=== PATIENT | male | born 1960 | race Caucasian/White ===

== ENCOUNTER 2018-11-24 11:42 | Emergency (ER) | payer BC ==
[2018-11-24 12:10] VITALS: RESP 18
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
--- NOTE | 2018-11-24 15:08 | CT ---
EXAMINATION TYPE: CT brain ken coombs con DATE OF EXAM: 11/24/2018 COMPARISON: 01/17/2011 HISTORY: Fall on 11/22/18. Head and neck pain. CT DLP: 1754.[address] of the brain was performed. The ventricles, basal cisterns and sulci overlying the cerebral convexities demonstrate enlargement. There is no evidence for intracranial hemorrhage or sulcal effacement. There is decreased attenuatio n about the periventricular white matter and deep white matter of both cerebral hemispheres, compatib le with chronic small vessel ischemia. No mass effects are seen. If symptoms persist consider MRI. Osseous calvarium is intact. IMPRESSION: 1. Age related atrophic and chronic small vessel ischemic change without acute intracranial process seen at this time. CT Cervical Spine: Unenhanced CT of the cervical spine was performed with bone and soft tissue window settings submitted . Coronal and sagittal reconstruction is obtained. There is normal alignment and prevertebral soft tissues. No evidence for acute cervical fracture . Scattered degenerative disc disease and spondylosis. Biapical scarring. IMPRESSION: 1. No evidence for acute fracture or subluxation of the cervical spine.
[2018-11-24] MEDS ORDERED: KETOROLAC 60 MG/2 ML VIAL IM STA (15:13)
[2018-11-24] MEDS ORDERED: DIAZEPAM 5 MG TAB PO STA (15:13)
[2018-11-24 15:53] VITALS: BP 111/79; PULSE 98; TEMP 97.7
== END 2018-11-24 15:53 | disposition home or self-care (01) ==
LOC: EC 11:42
DX: S13.9XXA Sprain of joints and ligaments of unspecified parts of neck, initial encounter (principal); Z79.899 Other long term (current) drug therapy; Z87.820 Personal history of traumatic brain injury; Z85.3 Personal history of malignant neoplasm of breast; Z85.818 Personal history of malignant neoplasm of other sites of lip, oral cavity, and pharynx; Z90.11 Acquired absence of right breast and nipple; W01.0XXA Fall on same level from slipping, tripping and stumbling without subsequent striking against object, initial encounter; Y92.009 Unspecified place in unspecified non-institutional (private) residence as the place of occurrence of the external cause
CPT/HCPCS: 72125; 70450; 99284; 96372; J1885

== ENCOUNTER → 2019-01-22 | Outpatient (CLI) | payer BC ==
--- NOTE | 2019-01-22 09:27 | MR ---
EXAMINATION TYPE: MR shoulder RT wo con DATE OF EXAM: 01/22/2019 COMPARISON: Outside right shoulder x-ray December 10, 2018 HISTORY: R shoulder pain per order. Pain with difficulty raising overhead for 2 months with history o f surgery 9 years ago. TECHNIQUE: Multiplanar, multisequence imaging of the right shoulder is performed without contrast. FINDINGS: Rotator Cuff: There is increased signal in the distal supraspinatus and infraspinatus tendons, there is small articular surface tear involving medial fibers of the supraspinatus tendon at the articular rides attendant measuring 6 mm transversely by 7 mm AP diameter coronal image 12 and sagittal image 22. No f ull-thickness or retracted tendon tear is seen. Subscapularis tendon is thickened with increased sign al. Rotator cuff muscle bulk is maintained. Acromioclavicular Joint: Moderate narrowing acromioclavicular joint is present. Underlying fat plane is maintained. Distal acromion morphology is unremarkable. Glenohumeral Joint: There is small to moderate glenohumeral joint effusion with mild to moderate narr owing. No significant spurring. Labrum: The labrum appears grossly intact given limitation of non-arthrogram study. Biceps Tendon: The long head of biceps is in normal location within bicipital groove. Bone marrow signal: No focal abnormal marrow signal is appreciated. Other: No additional significant abnormality is appreciated. IMPRESSION: Tendinosis distal supraspinatus and infraspinatus tendons with small partial articular cramer rface tear distal supraspinatus tendon. [id number] degenerative changes glenohumeral and acromi oclavicular joint as detailed above.
== END | disposition home or self-care (01) ==
LOC: RADMRIMAIN 07:15
PROVIDERS: ATTEND Orthopaedic Surgery
DX: M75.101 Unspecified rotator cuff tear or rupture of right shoulder, not specified as traumatic (principal); M67.911 Unspecified disorder of synovium and tendon, right shoulder; M19.011 Primary osteoarthritis, right shoulder

== ENCOUNTER 2019-05-15 09:03 | Day surgery (SDC) | payer BC ==
--- NOTE | 2019-05-13 10:14 | HP ---
HISTORY AND PHYSICAL CHIEF COMPLAINT: Right shoulder pain. 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 He is having pain with overhead activity and at night. He has tried an injection along with medication without much relief. PAST MEDICAL HISTORY: Significant for type 2 diabetes, closed head injury, and hypercholesterolemia. PAST SURGICAL HISTORY: Significant for right shoulder arthroscopic rotator cuff repair in 2009. CURRENT MEDICATIONS: 1. Lipitor. 2. Ibuprofen. 3. Citalopram. ALLERGIES: He denies drug allergies. FAMILY HISTORY: Significant for cancer. SOCIAL HISTORY: Negative for current tobacco or alcohol use. REVIEW OF SYSTEMS: Sixteen-point review of systems otherwise reviewed and is noncontributory. PHYSICAL EXAMINATION: On examination, the patient is approximately 6 feet tall, 255 pounds of endomorphic habitus. HEENT exam is nonfocal. Neck is supple. On examination of his right shoulder, he is tender about the anterior subacromial space. He has moderate subacromial crepitus. Active range of motion forward elevation 90 degrees, external rotation with arm at side 30 degrees, internal rotation to L3. Passively, I am able to forward elevate him to 155 degrees. Impingement test, Neer test, and Speed test are positive. His distal neurovascular exam otherwise appears intact in the right upper extremity. MRI report right shoulder from 01/22/2019 shows questionable partial-thickness tear of the supraspinatus along with tendinosis of the infraspinatus. There is mild glenohumeral joint disease. IMPRESSION: Right shoulder impingement with possible recurrent rotator cuff tear. RECOMMENDATIONS: I talked to the patient at length regarding his condition along with treatment options. At this point, he is quite symptomatic and limited because of pain despite conservative measures. After thorough discussion, he opts to proceed with surgery. We will plan to proceed with right shoulder arthroscopic evaluation with possible rotator cuff debridement versus repair. Risks and benefits were discussed at length in layman's terms. We will likely perform that as an outpatient procedure. [id number] / LNYN: [id number] /
[2019-05-14 09:05] VITALS: BMI 37.3
[~2019-05-15 09:03] MED LIST: DEXAMETHASONE SOD PHOSPHATE 10 MG/ML 1 ML VIAL IV ONE; HYDROmorphone 0.5 MG/0.5 ML SYRINGE IVP PRN; LACTATED RINGERS 1,000 ML IV SCH; MIDAZOLAM 2 MG/2 ML VIAL IV PRN; ONDANSETRON 4 MG/2 ML VIAL IVP ONE; SCOPOLAMINE 1.5MG/72HR PATCH TRANSDERM ONE
[2019-05-15 09:38] LABS: Glucose,Whole Blood 202 mg/dL (75-99)
[2019-05-15] MEDS ORDERED: LIDOCAINE 1% 20 ML VIAL (10MG/ML) FOR IV START INTRADERMA ONE (09:46)
[2019-05-15] MEDS ORDERED: fentaNYL (PF) 50 MCG/ML 2 ML AMP IV ONE (09:50)
[2019-05-15] MEDS ORDERED: MIDAZOLAM (PF) 2 MG/2 ML VIAL IV ONE (09:50)
--- NOTE | 2019-05-15 10:18 | P.ANPRN ---
Procedure Note - Anesthesia - Nerve Block Performed Right Interscalene Single Time Out Performed: Yes Date of Procedure: 05/15/19 Procedure Start Time: 09:53 Procedure Stop Time: 10:05 Location of Patient Procedure: PreOp Indication: Requested by Surgeon Specifically requested for management of pain by DrRobert: Braydon Sánchez Sedation Type: Sedate with meaningful contact maintained Preparation: Sterile Prep Position: Supine Needle Types: Pajunk Needle Gauge: 21 Ultrasound used to visualize needle placement: Yes Ultrasound used to observe medication spread: Yes Injectate: 2.0% Lidocaine (see comment for volume) (ROPIVACAINE 0.5% 10ml plus Lidocaine 2 % with epi 1/200 10 ml) Adjunct: Epinephrine (see comment for dilution ratio) Blood Aspirated: No Pain Paresthesia on Injection Noted: No Resistance on Injection: Normal Image Stored and Saved: Yes Events: Uneventful and Well Tolerated
[2019-05-15] MEDS ORDERED: SUCCINYLCHOLINE CHLORIDE 100 MG/5 ML SYR IV ONE (10:32)
[2019-05-15] MEDS ORDERED: LIDOCAINE 2%-EPI 1:100,000 20 ML VIAL ONE (10:32)
[2019-05-15] MEDS ORDERED: PROPOFOL 10 MG/ML 20 ML VIAL IV ONE (10:32)
[2019-05-15] MEDS ORDERED: LIDOCAINE 1% INJ 10MG/ML (20 ML MDV) ONE (10:32)
[2019-05-15] MEDS ORDERED: PHENYLEPHRINE-0.9% NACL SYG 1 MG/10 ML SYRINGE ONE (10:32)
[2019-05-15] MEDS ORDERED: ROPIVACAINE 5 MG/ML 30 ML VIAL ONE (10:32)
--- NOTE | 2019-05-15 11:43 | P.OP ---
Date of Procedure: 05/15/19 Preoperative Diagnosis: Right shoulder impingement/bicipital tendinosis/rotator cuff tendinitis Postoperative Diagnosis: Same in addition to acromioclavicular joint osteoarthrosis and partial thickness rotator cuff tear Procedure(s) Performed: Right shoulder arthroscopic subacromial decompression/biceps tenotomy/rotator cuff debridement/distal clavicular resection Anesthesia: abby BLUNT Surgeon: Braydon Sánchez Hasher Operator #1: Fran Lewis Estimated Blood Loss (ml): 10 Pathology: none sent Condition: stable Disposition: PACU Indications for Procedure: The patient's a 59-year-old male presents with progressive right shoulder pain despite conservative measures. A discussion of the risks and benefits of operative intervention versus continued conservative measures was made with patient. He opted proceed with surgery. Operative risks to include infection, neurovascular injury, development of blood clots, possible incomplete resolution of symptoms, possible worsening of symptoms and need for subsequent procedures was discussed. Informed consent was obtained. Operative Findings: As below Description of Procedure: The patient was brought to the operating room, and after induction of general anesthesia was placed in a beachchair position. A preoperative interscalene block was placed for postoperative analgesia. I examined the right shoulder. There was no gross block to passive motion or gross glenohumeral instability. The right upper extremity was prepped and draped in normal fashion. The bony outlines the acromion, distal clavicle, and coracoid process were outlined with a skin marker. The glenohumeral joint was inflated with 50 mL of saline utilizing a spinal needle from posterior approach. A posterior portal was made through a 5 mm skin incision 1 cm medial and inferior to the posterior lateral border time. A blunt trocar was used to easily into the joint. Diagnostic arthroscopy was performed. An anterior portal was made just lateral to the coracoid process entering the joint above the subscapularis tendon. The subscapularis tendon appeared to be intact. Anterior labrum was intact. The inferior recess was inspected. The posterior labrum was intact. There was a high-grade partial-thickness tear of the long head of the biceps involving interarticular portion. It was elected to proceed with release at this point. This was released from the superior labrum with electrocautery and was allowed to retract to the bicipital groove. On inspection the rotator cuff, it appeared to be intact on the articular surface. A lateral portal was made 2 centimeters inferior to the anterior lateral border of the acromion. The soft tissue on the undersurface of the acromion was debrided with a motorized shaver and electrocautery clearly defining the anterior medial and lateral borders as well as the distal clavicle. An anterior inferior acromioplasty was performed with a motorized sherry starting anterolateral, then extending this posteriorly, then extending this medially. I converted to a flat acromion and this was verified in the posterior and lateral viewing portals. The distal 4 mm of the clavicle was resected with a motorized sherry. The rotator cuff was inspected on the bursal surface. There was significant bursal thickening that was debrided with a motorized shaver. There was minimal fraying of the anterior aspect of the infraspinatus. This was debrided back to a stable base with a motorized shaver. The remainder of the cuff appeared to be intact. The patient was then awoken from general anesthesia and transferred to recovery room in good condition. Blood loss was estimated at 10 mL. No complications were incurred. Sponge and needle counts were correct in the case. Rudolph POOL assisted and the major components of the case to include arm positioning.
[2019-05-15 11:44] VITALS: TEMP 97.7
[2019-05-15 12:00] LABS: Glucose,Whole Blood 213 mg/dL (75-99)
[2019-05-15] MEDS ORDERED: INSULIN ASPART (NovoLOG) 100 UNIT/ML VIAL SQ ONE (12:06)
[2019-05-15] MEDS ORDERED: LACTATED RINGERS 1,000 ML IV ONE (12:29)
[2019-05-15 12:36] VITALS: RESP 16
[2019-05-15 12:51] VITALS: BP 112/71; PULSE 91
== END 2019-05-15 13:15 | disposition home or self-care (01) ==
LOC: OR 09:03
PROVIDERS: ATTEND Orthopaedic Surgery
DX: M75.101 Unspecified rotator cuff tear or rupture of right shoulder, not specified as traumatic (principal); M19.011 Primary osteoarthritis, right shoulder; M75.21 Bicipital tendinitis, right shoulder; E11.9 Type 2 diabetes mellitus without complications; E78.00 Pure hypercholesterolemia, unspecified; Z87.820 Personal history of traumatic brain injury; E78.5 Hyperlipidemia, unspecified; G47.33 Obstructive sleep apnea (adult) (pediatric); Z99.89 Dependence on other enabling machines and devices; Z85.21 Personal history of malignant neoplasm of larynx; Z85.3 Personal history of malignant neoplasm of breast; R41.3 Other amnesia; Z79.84 Long term (current) use of oral hypoglycemic drugs; Z79.1 Long term (current) use of non-steroidal anti-inflammatories (NSAID); Z79.899 Other long term (current) drug therapy
CPT/HCPCS: 64415; 76942; 29823; 29824; J1100; J0690; J2405; J2001; J3010; J2795; J2370; J0330; J2704; J2250

== ENCOUNTER → 2019-07-06 | Outpatient (CLI) | payer BC ==
--- NOTE | 2019-07-06 20:02 | MR ---
EXAMINATION TYPE: MR shoulder LT wo con DATE OF EXAM: 07/06/2019 7:35 PM COMPARISON: NONE HISTORY: Pain in left shoulder TECHNIQUE: Multiplanar multispin echo imaging of the left shoulder was performed. FINDINGS: Rotator cuff : Thickening and heterogeneity of the supraspinatus tendon compatible chronic tendinopat hy. There is no evidence for partial or complete tear. Remaining constituents of the rotator cuff are intact. Bursa: No bursal effusion or thickening is seen. Musculature: There is no muscular tear, contusion, or atrophy. Acromioclavicular joint : There are mild degenerative changes of the acromioclavicular joint. There is no anterior or lateral acromial downsloping. Osseous structures : There are no fractures or regions of abnormal bone marrow signal intensity. Long biceps tendon : The biceps tendon is normally situated within the bicipital groove. No complete or partial biceps tendon tear is present. Glenohumeral Joint fluid : There is no glenohumeral joint effusion. Cartilage and Bone : No focal hyaline cartilage defects are noted. No Hill-Sachs, reverse Hill-Sachs, or bony Bankart lesions are seen. Labrum : There are no SLAP or soft tissue Bankart lesions. No paralabral cysts are seen. OTHER FINDINGS : none IMPRESSION: 1. Chronic tendinopathy of the supraspinatus tendon noted.
== END | disposition home or self-care (01) ==
LOC: RADMRIMAIN 18:22
PROVIDERS: ATTEND Orthopaedic Surgery
DX: M75.82 Other shoulder lesions, left shoulder (principal)

== ENCOUNTER → 2019-07-08 | Outpatient (CLI) | payer BC ==
[2019-07-08 09:27] LABS: Basophils % (A) 1 %; Eosinophils # (A) 0.1 k/uL (0-0.7); Eosinophils % (A) 1 %; HCT 44.3 % (39.0-53.0); HGB 15.1 gm/dL (13.0-17.5); Lymphocytes # (A) 1.2 k/uL (1.0-4.8); Lymphocytes % (A) 19 %; MCH 29.9 pg (25.0-35.0); MCHC 34.2 g/dL (31.0-37.0); MCV 87.5 fL (80.0-100.0); Mean Platelet Volume 7.8; Monocytes # (A) 0.4 k/uL (0-1.0); Monocytes % (A) 6 %; Neutrophils # (A) 4.7 k/uL (1.3-7.7); Neutrophils % (A) 72 %; Platelet Count 192 k/uL (150-450); RBC 5.07 m/uL (4.30-5.90); RDW 12.2 % (11.5-15.5); WBC 6.5 k/uL (3.8-10.6)
[2019-07-08 09:35] LABS: Potassium 4.5 mmol/L (3.5-5.1)
== END | disposition home or self-care (01) ==
LOC: LABPAT 08:50
PROVIDERS: ATTEND Orthopaedic Surgery
DX: Z01.812 Encounter for preprocedural laboratory examination (principal); M75.42 Impingement syndrome of left shoulder
CPT/HCPCS: 36415; 80051; 85025

== ENCOUNTER 2019-07-14 06:30 | Day surgery (SDC) | payer BC ==
[2019-07-09 15:49] VITALS: BMI 35.2
--- NOTE | 2019-07-13 09:53 | HP ---
HISTORY AND PHYSICAL CHIEF COMPLAINT: Left shoulder pain. 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 It has worsened recently. He is having pain with overhead use and at night. He has tried previous medications and exercises without much relief. PAST MEDICAL HISTORY: Significant for type 2 diabetes, close head injury, hypercholesterolemia. PAST SURGICAL HISTORY: Significant for right shoulder arthroscopy. CURRENT MEDICATIONS: 1. Citalopram. 2. Farxiga. 3. Ibuprofen. 4. Lipitor. ALLERGIES: He denies drug allergies. FAMILY HISTORY: Significant for cancer. SOCIAL HISTORY: Negative for current tobacco or alcohol use. REVIEW OF SYSTEMS: Sixteen-point review of systems otherwise reviewed and is noncontributory. PHYSICAL EXAMINATION: On examination, the patient is approximately 6 feet tall, 255 pounds of endomorphic habitus. HEENT exam is nonfocal. Neck is supple. On examination of his left shoulder, he is tender about the anterior subacromial space in the acromioclavicular joint. He has moderate subacromial crepitus. Active range of motion forward elevation 90 degrees, external rotation with arm at side 45 degrees, internal rotation to L1. Passively I am able to forward elevate him to 135 degrees. Motor strength is 5 minus over 5 for external rotation and 4+ over 5 for abduction. Impingement test, Neer test and Speed test are positive. He has pain with cross-body adduction. His distal neurovascular exam otherwise appears to be intact in left upper extremity. MRI report from 07/06/2019, left shoulder shows left rotator cuff tendinopathy of the supraspinatus with a possible partial-thickness tear. IMPRESSION: 1. Left shoulder impingement/partial-thickness rotator cuff tear. 2. Left proximal bicipital tendinosis. 3. Left acromioclavicular joint arthritis. 4. Vkl-kgimnpv-rteploqle diabetes. RECOMMENDATIONS: I talked to the patient at length regarding his condition and treatment options. At this point, he has tried conservative measures with persistent/worsening of his symptoms. After thorough discussion, he opts to proceed with surgery. We will plan to proceed with arthroscopic evaluation with probable subacromial decompression, possible rotator cuff debridement versus repair, possible biceps tenotomy, and possible distal clavicular resection. We will likely perform that as an outpatient procedure. Risks and benefits were discussed at length in layman's terms. MMODL / IJN: [id number] /
[~2019-07-14 06:30] MED LIST changes: +LIDOCAINE 1% 20 ML VIAL (10MG/ML) FOR IV START INTRADERMA PRN; -MIDAZOLAM 2 MG/2 ML VIAL IV PRN; -ONDANSETRON 4 MG/2 ML VIAL IVP ONE; -SCOPOLAMINE 1.5MG/72HR PATCH TRANSDERM ONE
[2019-07-14 06:56] LABS: Glucose,Whole Blood 271 mg/dL (75-99)
[2019-07-14] MEDS ORDERED: ONDANSETRON 4 MG/2 ML VIAL IVP ONE (07:05)
[2019-07-14] MEDS ORDERED: INSULIN ASPART (NovoLOG) 100 UNIT/ML VIAL SQ ONE ×3 (07:06→11:17)
[2019-07-14 07:47] LABS: Glucose,Whole Blood 236 mg/dL (75-99)
[2019-07-14] MEDS ORDERED: PROPOFOL 10 MG/ML 20 ML VIAL IV ONE (08:07)
[2019-07-14] MEDS ORDERED: GLYCOPYRROLATE 0.2 MG/ML 2 ML VIAL ONE (08:07)
[2019-07-14] MEDS ORDERED: fentaNYL (PF) 50 MCG/ML 2 ML AMP ONE (08:07)
[2019-07-14] MEDS ORDERED: NEOSTIGMINE 1 MG/ML 10 ML VIAL ONE (08:07)
[2019-07-14] MEDS ORDERED: LIDOCAINE 1% INJ 10MG/ML (20 ML MDV) ONE (08:07)
[2019-07-14] MEDS ORDERED: ROPIVACAINE 5 MG/ML 30 ML VIAL ONE (08:07)
[2019-07-14] MEDS ORDERED: PHENYLEPHRINE-0.9% NACL SYG 1 MG/10 ML SYRINGE ONE (08:07)
[2019-07-14] MEDS ORDERED: DEXAMETHASONE SOD PHOSPHATE 4 MG/ML 1 ML VIAL ONE (08:07)
[2019-07-14] MEDS ORDERED: ROCURONIUM BROMIDE 10 MG/ML 10 ML VIAL IV ONE (08:07)
[2019-07-14] MEDS ORDERED: MIDAZOLAM 2 MG/2 ML VIAL ONE (08:07)
[2019-07-14] MEDS ORDERED: EPINEPHrine (PF) 1 ML in SODIUM CHLORIDE 0.9% IRRIGATIO 3,000 ML IRRIGATION ONE ×7 (08:58→08:59)
--- NOTE | 2019-07-14 09:52 | P.OP ---
Date of Procedure: 07/14/19 Preoperative Diagnosis: Left shoulder impingement/bicipital tendinosis/acromioclavicular joint arthritis Postoperative Diagnosis: Same in addition to 1 cm rotator cuff tear/supraspinatus Procedure(s) Performed: Left shoulder arthroscopic subacromial decompression/distal clavicular resection/biceps tenotomy/rotator cuff repair Implants: Arthrex 4.75 mm swivel lock anchor 1 Anesthesia: MERLENE, regional Surgeon: Braydon Sánchez Solar Energy Specialist #1: Fran Lewis Estimated Blood Loss (ml): 10 Pathology: none sent Condition: stable Disposition: PACU Indications for Procedure: The patient's a 59-year-old male who presents with progressive left shoulder pain despite conservative measures. A discussion of the risks and benefits of operative intervention was made with patient. He opted to proceed with surgery. Operative risks to include infection, neurovascular injury, development of blood clots, possible incomplete resolution symptoms, possible worsening symptoms and need for subsequent procedures was discussed. Informed consent was obtained. Operative Findings: As below Description of Procedure: The patient was brought to the operating room, and after induction of general anesthesia was placed in a beachchair position. A preoperative interscalene block was placed for postoperative analgesia. I examined the left shoulder. There was no gross block to passive motion or gross glenohumeral instability. The left upper extremity was prepped and draped in normal fashion. The bony outlines the acromion, distal clavicle, and coracoid process were outlined with a skin marker. The glenohumeral joint was inflated with 50 mL of saline utilizing a spinal needle from posterior approach. A posterior portal was made through a 5 mm skin incision 1 cm medial and inferior to the posterior lateral border time. A blunt trocar was used to easily into the joint. Diagnostic arthroscopy was performed. An anterior portal was made just lateral to the coracoid process entering the joint above the subscapularis tendon. The subscapularis tendon appeared to be intact. Anterior labrum was intact. The inferior recess was inspected. The posterior labrum was intact. There was a high-grade partial-thickness tear of the long head of the biceps involving interarticular portion. It was elected to proceed with release at this point. This was released from the superior labrum with electrocautery and was allowed to retract to the bicipital groove. On inspection the rotator cuff, a high- grade partial-thickness tear involving the anterior 1 cm of the supraspinatus w as noted. This was 80% improved the tendon. The remaining portion was debrided with a motorized shaver completing to a full-thickness tear. The arthroscope was then placed into the subacromial space. A lateral portal was made 2 centimeters inferior to the anterior lateral border of the acromion. The rotator cuff was easily mobilized back to the greater tuberosity. The soft tissue on the undersurface of the acromion was debrided with a motorized shaver and electrocautery clearly defining the anterior medial and lateral borders as well as the distal clavicle. An anterior inferior acromioplasty was performed with a motorized sherry starting anterolateral, then extending this posteriorly, then extending this medially. I converted to a flat acromion and this was verified in the posterior and lateral viewing portals. The distal 5 mm of the clavicle was resected with a motorized sherry. A #2 fiber tape was passed through the rotator cuff with a scorpion suture passer. A lateral anchor was placed with the appropriate starting awl. Good purchase was obtained. Final arthroscopic view showed adequate compression at the footprint. The arthroscope was then removed. The portals were closed with simple 3-0 nylon sutures. A sterile dressing was applied in addition to a sling. The patient was then awoken from general anesthesia and transferred to recovery room in good condition. Blood loss was estimated at 10 mL. No complications were incurred. Sponge and needle counts were correct in the case. Rudolph POOL assisted and the major components of the case to include arm positioning, anchor placement, and rotator cuff repair.
[2019-07-14 09:57] VITALS: TEMP 97
[2019-07-14 10:26] LABS: Glucose,Whole Blood 282 mg/dL (75-99)
[2019-07-14 11:00] VITALS: RESP 16
[2019-07-14 11:02] LABS: Glucose,Whole Blood 288 mg/dL (75-99)
[2019-07-14 11:20] VITALS: BP 101/71; PULSE 99
[2019-07-14 11:38] LABS: Glucose,Whole Blood 273 mg/dL (75-99)
--- NOTE | 2019-07-14 20:38 | P.ANPRN ---
Procedure Note - Anesthesia - Nerve Block Performed Right Interscalene Single Time Out Performed: Yes Date of Procedure: 07/14/19 Procedure Start Time: : Procedure Stop Time: :37 Location of Patient: PreOp Indication: Acute Post-Operative Pain, Requested by Surgeon Sedation Type: Sedate with meaningful contact maintained Preparation: Sterile Prep Position: Supine Needle Types: Pajunk Needle Gauge: 21 Ultrasound used to visualize needle placement: Yes Ultrasound used to observe medication spread: Yes Blood Aspirated: No Pain Paresthesia on Injection Noted: No Resistance on Injection: Normal Image Stored and Saved: Yes Events: Uneventful and Well Tolerated (ropi .5% 30 cc plus [id number])
[2019-07-15] MEDS ORDERED: MIDAZOLAM 2 MG/2 ML VIAL IVP ONE (07:31)
== END 2019-07-14 12:00 | disposition home or self-care (01) ==
LOC: OR 06:30
PROVIDERS: ATTEND Orthopaedic Surgery
DX: M75.102 Unspecified rotator cuff tear or rupture of left shoulder, not specified as traumatic (principal); M19.012 Primary osteoarthritis, left shoulder; E11.9 Type 2 diabetes mellitus without complications; E78.00 Pure hypercholesterolemia, unspecified; Z87.820 Personal history of traumatic brain injury; Z79.1 Long term (current) use of non-steroidal anti-inflammatories (NSAID); Z79.899 Other long term (current) drug therapy; G47.33 Obstructive sleep apnea (adult) (pediatric); Z99.89 Dependence on other enabling machines and devices; F32.9 Major depressive disorder, single episode, unspecified; Z79.84 Long term (current) use of oral hypoglycemic drugs
CPT/HCPCS: 64415; 76942; 29826; 29827; 29824; C1713; C1894; J2250; J1100 ×2; J2710; J2405; J0171; J0694; J2001; J3010; J2795; J2370; J2704

== ENCOUNTER → 2020-06-15 | Outpatient (CLI) | payer BC ==
--- NOTE | 2020-06-15 10:46 | MM ---
Reason for exam: clinical finding. Last mammogram was performed 13 years and 6 months ago. History: Mastectomy of the right breast. Physical Findings: Nurse did not find any significant physical abnormalities on exam. MG Diagnostic Mammo w CAD INDIRA Bilateral CC and MLO view(s) were taken. XCCL view(s) were taken of the left breast. No prior studies available for comparison. There are scattered fibroglandular densities. Focal asymmetry left subareolar. These results were verbally communicated with the patient and result sheet given to the patient on 06/15/20. ASSESSMENT: Benign, BI-RAD 2 RECOMMENDATION: Ultrasound of the left breast in 6 months. Manage patient on a clinical basis.
--- NOTE | 2020-06-15 10:47 | USB ---
Reason for exam: clinical finding. History: Mastectomy of the right breast. US Breast Limited LT Left limited breast ultrasound including focal area of concern, retroareolar and axilla demonstrates a 1.2 x 1.1cm irregular, hypoechoic lesion at the posterior nipple, likely gynecomastia. These results were verbally communicated with the patient and result sheet given to the patient on 06/15/20. ASSESSMENT: Probably benign, BI-RAD 3 RECOMMENDATION: Ultrasound of the left breast in 6 months. Manage patient on a clinical basis.
== END | disposition home or self-care (01) ==
LOC: RADMAMWWP 08:05
PROVIDERS: ATTEND Nurse Practitioner
DX: N63.20 Unspecified lump in the left breast, unspecified quadrant (principal)
CPT/HCPCS: 77066

== ENCOUNTER 2020-08-03 09:37 | Day surgery (SDC) | payer BC ==
[2020-08-01 14:40] VITALS: BMI 35.2
[~2020-08-03 09:37] MED LIST changes: -DEXAMETHASONE SOD PHOSPHATE 10 MG/ML 1 ML VIAL IV ONE; -HYDROmorphone 0.5 MG/0.5 ML SYRINGE IVP PRN; -LACTATED RINGERS 1,000 ML IV SCH; -LIDOCAINE 1% 20 ML VIAL (10MG/ML) FOR IV START INTRADERMA PRN; +Pre Op ABX Message 1 EACH MISC MISCELLANE ONE
[2020-08-03 10:23] VITALS: TEMP 97.8
[2020-08-03] MEDS ORDERED: LIDOCAINE 1% (10MG/ML) FOR IV START INTRADERMA ONE (10:30)
[2020-08-03] MEDS ORDERED: LACTATED RINGERS 1,000 ML IV ONE ×2 (10:32→11:52)
[2020-08-03 10:36] LABS: Glucose,Whole Blood 124 mg/dL (75-99)
[2020-08-03] MEDS ORDERED: BUPIVACAIN-EPI 0.5%-1:200,000 30 ML VIAL SQ ONE ×2 (10:37→11:07)
[2020-08-03] MEDS ORDERED: ONDANSETRON 4 MG/2 ML VIAL ONE (10:44)
[2020-08-03] MEDS ORDERED: ALBUTEROL HFA INHALER INHALATION ONE (10:45)
[2020-08-03] MEDS ORDERED: PROPOFOL 10 MG/ML 20 ML VIAL IV ONE (10:45)
[2020-08-03] MEDS ORDERED: ONDANSETRON 4 MG/2 ML VIAL IVP ONE (10:45)
[2020-08-03] MEDS ORDERED: fentaNYL (PF) 50 MCG/ML 2 ML AMP ONE (10:45)
[2020-08-03] MEDS ORDERED: SUCCINYLCHOLINE CHLORIDE 100 MG/5 ML SYR IV ONE (10:45)
[2020-08-03] MEDS ORDERED: LIDOCAINE 1% INJ 10MG/ML (20 ML MDV) ONE (10:45)
[2020-08-03] MEDS ORDERED: MIDAZOLAM 2 MG/2 ML VIAL ONE (10:45)
[2020-08-03] MEDS ORDERED: PHENYLEPHRINE 10 MG/ML VIAL ONE (10:45)
[2020-08-03] MEDS ORDERED: DEXAMETHASONE SOD PHOSPHATE 4 MG/ML 1 ML VIAL IVP ONE (10:46)
--- NOTE | 2020-08-03 11:57 | P.OP ---
Date of Procedure: 08/03/20 Preoperative Diagnosis: gynecomastia left breast Postoperative Diagnosis: Gynecomastia left breast Procedure(s) Performed: Excision gynecomastia left breast Anesthesia: MERLENE Surgeon: Luz Fonseca IV fluids (ml): 15 Pathology: other Condition: stable Disposition: PACU Description of Procedure: The patient's taken the operative suite where he is prepped and draped in the usual sterile manner under general endotracheal anesthetic. Local anesthetic is instilled in the subcutaneous tissue and skin around the areola. It's then infiltrated into the subcutaneous tissue around the gynecomastia. A circumareolar incision was made. Flaps were sharply raised. The gynecomastia was then sharply excised off the anterior chest wall. Small bleeding points are controlled with electrocautery. The gynecomastia was removed. See pathology for size and report. Small bleeding points were controlled with electrocautery. A small channel drain was placed. The skin was then reapproximated using some inverted deep dermal sutures of 3-0 Vicryl. The skin was closed with 4-0 Vicryl subcuticular manner. Steri-Strips and dressings were applied. He tolerated the procedure without difficulty was taken recovery room in satisfactory condition. According to or personnel, all counts are correct. Plan - Discharge Summary Discharge Rx Participant: No New Discharge Prescriptions: New traMADol HCL 1 - 2 mg PO Q4-6H PRN #20 tablet PRN Reason: Pain No Action Citalopram Hydrobromide [CeleXA] 40 mg PO QAM Multivitamins, Thera [Multivitamin (formulary)] 1 tab PO QAM Cholecalciferol [Vitamin D3] 1,000 unit PO DAILY Atorvastatin [Lipitor] 10 mg PO QAM metFORMIN HCL [metFORMIN HCL ER] 1,000 mg PO BID Cognitive Health Supplement 1 tab PO DAILY glipiZIDE [Glucotrol] 10 mg PO AC-BID Discharge Medication List Citalopram Hydrobromide [CeleXA] 40 mg PO QAM 12/07/14 [History] Atorvastatin [Lipitor] 10 mg PO QAM 11/24/18 [History] Cholecalciferol [Vitamin D3] 1,000 unit PO DAILY 11/24/18 [History] Multivitamins, Thera [Multivitamin (formulary)] 1 tab PO QAM 11/24/18 [History] Cognitive Health Supplement 1 tab PO DAILY 05/14/19 [History] metFORMIN HCL [metFORMIN HCL ER] 1,000 mg PO BID 05/14/19 [History] glipiZIDE [Glucotrol] 10 mg PO AC-BID 08/01/20 [History] traMADol HCL 1 - 2 mg PO Q4-6H PRN #20 tablet 08/03/20 [Rx] Follow up Appointment(s)/Referral(s): Luz Fonseca DO [Doctor of Osteopathic Medicine] - 08/09/20 (Call to set up the appointment time [phone]) Patient Instructions/Handouts: [facility] Drain Care (GEN) Activity/Diet/Wound Care/Special Instructions: Empty the drain 3 times a day. Breakdown the total amount of the drainage each time. Bring the record of the drainage to your office visit. Change the dressing daily starting Saturday. Wash around the drain tube site daily and apply a small amount of antibiotic ointment. call if questions or concerns Discharge Disposition: HOME SELF-CARE
[2020-08-03 12:18] LABS: Glucose,Whole Blood 148 mg/dL (75-99)
[2020-08-03] MEDS ORDERED: traMADol 50 MG TAB ONE (13:19)
[2020-08-03 13:22] VITALS: RESP 17
[2020-08-03 13:37] VITALS: BP 108/71; PULSE 85
== END 2020-08-03 14:00 | disposition home or self-care (01) ==
LOC: OR 09:37
PROVIDERS: ATTEND Surgery
DX: N62 Hypertrophy of breast (principal); I10 Essential (primary) hypertension; E11.9 Type 2 diabetes mellitus without complications; G47.33 Obstructive sleep apnea (adult) (pediatric); Z79.84 Long term (current) use of oral hypoglycemic drugs; Z79.899 Other long term (current) drug therapy; Z99.89 Dependence on other enabling machines and devices; Z85.3 Personal history of malignant neoplasm of breast; Z85.21 Personal history of malignant neoplasm of larynx
CPT/HCPCS: 88305; 19120; J2250; J1100; J2370; J2405; J2001; J3010; J0330; J2704

== ENCOUNTER 2024-01-26 12:55 | Emergency (ER) | payer BC ==
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
[2024-01-26] MEDS ORDERED: IBUPROFEN 400 MG TAB PO STA (13:50)
[2024-01-26] MEDS ORDERED: HYDROcodone/APAP 7.5-325MG 1 EACH TAB PO ONE (13:51)
--- NOTE | 2024-01-26 14:03 | XR ---
EXAMINATION TYPE: XR ribs RT w pa chest xray DATE OF EXAM: 01/26/2024 1:54 PM CLINICAL INDICATION:Male, 63 years old with history of fall injury; [facility] COMPARISON: None TECHNIQUE: XR ribs RT w pa chest xray; Frontal and oblique views of the ribs with frontal chest radio graph. FINDINGS: The ribs have a normal appearance. No evidence of fracture. Overall, the lungs are clear. The cardiac silhouette is normal in size. The remaining osseous structures are intact. IMPRESSION: No acute osseous pathology.
[2024-01-26 14:55] VITALS: BP 116/72; PULSE 92; RESP 18; TEMP 97.9
== END 2024-01-26 14:57 | disposition home or self-care (01) ==
LOC: EC 12:55
DX: S29.9XXA Unspecified injury of thorax, initial encounter (principal); W01.0XXA Fall on same level from slipping, tripping and stumbling without subsequent striking against object, initial encounter; Y93.01 Activity, walking, marching and hiking
CPT/HCPCS: 99284

== ENCOUNTER 2024-02-24 06:22 | Emergency (ER) | payer BC ==
[2024-02-24 06:26] VITALS: RESP 18; TEMP 97.9
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
[2024-02-24] MEDS: ONDANSETRON 4 MG/2 ML VIAL IVP STA (06:59)
[2024-02-24] MEDS: KETOROLAC 15 MG/ML 1 ML VIAL IVP STA ×2 (06:59→09:14)
[2024-02-24] MEDS: MORPHINE SULFATE 4 MG/ML SYRINGE IVP STA (07:00)
[2024-02-24] MEDS: SODIUM CHLORIDE 0.9% 1,000 ML IV STA (07:00)
[2024-02-24 07:12] LABS: Basophils % (A) 0 %; Eosinophils # (A) 0.2 k/uL (0-0.7); Eosinophils % (A) 2 %; HCT 43.9 % (39.0-53.0); HGB 14.3 gm/dL (13.0-17.5); Lymphocytes # (A) 0.7 k/uL (1.0-4.8); Lymphocytes % (A) 6 %; MCH 29.5 pg (25.0-35.0); MCHC 32.5 g/dL (31.0-37.0); MCV 90.7 fL (80.0-100.0); Mean Platelet Volume 8.8; Monocytes # (A) 0.5 k/uL (0-1.0); Monocytes % (A) 4 %; Neutrophils # (A) 10.7 k/uL (1.3-7.7); Neutrophils % (A) 87 %; Platelet Count 206 k/uL (150-450); RBC 4.84 m/uL (4.30-5.90); RDW 12.5 % (11.5-15.5); WBC 12.3 k/uL (3.8-10.6)
[2024-02-24 07:49] LABS: ALT 32 U/L (4-49); AST 30 U/L (17-59); African American GFR (CKD) >90 (>60 ml/min/1.73 sqM); Albumin 4.4 g/dL (3.5-5.0); Alkaline Phosphatase 84 U/L (38-126); Amylase 38 U/L (30-110); Anion Gap 8 mmol/L; Blood Urea Nitrogen 17 mg/dL (9-20); Calcium 9.1 mg/dL (8.4-10.2); Carbon Dioxide 21 mmol/L (22-30); Chloride 109 mmol/L (98-107); Glucose 228 mg/dL (74-99); Lipase 68 U/L (23-300); Non-African American GFR(CKD) >90 (>60 ml/min/1.73 sqM); Potassium 4.4 mmol/L (3.5-5.1); Sodium 138 mmol/L (137-145); Total Bilirubin 0.7 mg/dL (0.2-1.3); Total Protein 7.2 g/dL (6.3-8.2)
--- NOTE | 2024-02-24 08:40 | CT ---
EXAMINATION TYPE: CT abdomen pelvis w con CT DLP: 2279.8 mGycm, Automated exposure control for dose reduction was used. DATE OF EXAM: 02/24/2024 8:22 AM COMPARISON: 02/24/2024 CLINICAL INDICATION:Male, 63 years old with history of LLQ pain; TECHNIQUE: Axial CT abdomen pelvis w con;Sagittal and coronal reformats were created on a separate w orkstation. Contrast used:100 ml mL of Isovue 300 with IV Contrast, (none if empty) Oral contrast used: without Oral Contrast (none if empty) FINDINGS: LOWER CHEST: Unremarkable ABDOMEN LIVER: Diffusely hypoattenuating parenchyma. GALLBLADDER AND BILE DUCTS: Unremarkable. PANCREAS: Unremarkable. SPLEEN: Unremarkable. ADRENAL GLANDS: Unremarkable. KIDNEYS AND URETERS: Mild left hydronephrosis secondary obstructing 3 mm calculus at the ureteral pel faith junction. PELVIS BLADDER: Unremarkable REPRODUCTIVE: Unremarkable. ABDOMEN & PELVIS STOMACH AND BOWEL: Scattered colonic diverticula. No evidence of bowel obstruction. PERITONEUM/RETROPERITONEUM: No evidence of pneumoperitoneum or free fluid. VASCULATURE: Mild atherosclerotic calcifications are present throughout the abdominal aorta and its b ranches. No evidence of aortic aneurysm. MUSCULOSKELETAL: No acute osseous abnormalities LYMPH NODES: No gross evidence for lymphadenopathy. SOFT TISSUE/ABDOMINAL WALL: Bilateral fat-containing inguinal hernias. IMPRESSION: 1. Mild left hydronephrosis secondary obstructing 3 mm calculus at the ureterovesicular junction. 2. Colonic diverticulosis. 3. Hepatic steatosis.
[2024-02-24] MEDS: MORPHINE SULFATE 2 MG/ML SYRINGE IVP STA (09:13)
[2024-02-24 10:55] LABS: Appearance,Urine Cloudy (Clear); Bilirubin,Urine Negative (Negative); Blood,Urine Moderate (Negative); Color,Urine Light Yellow; Glucose,Urine (UA) 3+ (Negative); Ketones,Urine Negative (Negative); Leukocyte Esterase,Urine Negative (Negative); Mucus,Urine Moderate /hpf; Nitrite,Urine Negative (Negative); PH, Urine 5.5 (5.0-8.0); Protein,Urine Negative (Negative); RBC,Urine 22 /hpf (0-5); Urobilinogen,Urine <2.0 mg/dL (<2.0); WBC,Urine 2 /hpf (0-5)
[2024-02-24 10:58] LABS: Specific Gravity,Urine >1.050 (1.001-1.035)
[2024-02-24 11:28] VITALS: BP 140/78; PULSE 77
== END 2024-02-24 11:29 | disposition home or self-care (01) ==
LOC: EC 06:22
DX: K57.30 Diverticulosis of large intestine without perforation or abscess without bleeding (principal); N13.2 Hydronephrosis with renal and ureteral calculous obstruction; K76.0 Fatty (change of) liver, not elsewhere classified; E11.9 Type 2 diabetes mellitus without complications; Z79.84 Long term (current) use of oral hypoglycemic drugs
CPT/HCPCS: 36415; 93005; 80053; 82150; 83605; 83690; 84484; 85025; 81001; 74177; 99284; 96374; 96375 ×2; 96376 ×2; 96361; J2270 ×2; J2405; J1885; Q9967

== ENCOUNTER 2025-01-21 08:21 | Emergency (ER) | payer BC ==
[2025-01-21] MEDS: KETOROLAC 15 MG/ML 1 ML VIAL IVP STA ×2 (09:04→12:47)
[2025-01-21] MEDS: ONDANSETRON 4 MG/2 ML VIAL IVP STA (09:06)
[2025-01-21] MEDS: HYDROmorphone 0.5 MG/0.5 ML SYRINGE IVP STA (09:07)
[2025-01-21] MEDS: SODIUM CHLORIDE 0.9% 1,000 ML IV SCH (09:08)
[2025-01-21 09:13] VITALS: RESP 19
[2025-01-21 09:28] LABS: Basophils # (A) 0.03 10*3/uL (0.00-0.10); Basophils % (A) 0.3 %; Eosinophils # (A) 0.06 10*3/uL (0.04-0.35); Eosinophils % (A) 0.7 %; HCT 43.1 % (39.6-50.0); HGB 14.5 g/dL (13.0-17.0); Lymphocytes # (A) 0.84 10*3/uL (0.90-5.00); Lymphocytes % (A) 9.3 %; MCH 29.5 pg (27.0-32.0); MCHC 33.6 g/dL (32.0-37.0); MCV 87.6 fL (80.0-97.0); Mean Platelet Volume 10.9 fL (9.5-12.2); Monocytes # (A) 0.51 10*3/uL (0.20-1.00); Monocytes % (A) 5.6 %; Neutrophils # (A) 7.59 10*3/uL (1.80-7.70); Neutrophils % (A) 83.8 %; Platelet Count 222 10*3/uL (140-440); RBC 4.92 10*6/uL (4.40-5.60); RDW 12.1 % (11.5-14.5); WBC 9.06 10*3/uL (4.50-10.00)
[2025-01-21 09:44] LABS: ALT 34 U/L (4-49); AST 27 U/L (17-59); African American GFR (CKD) >90 (>60 ml/min/1.73 sqM); Albumin 4.7 g/dL (3.5-5.0); Alkaline Phosphatase 93 U/L (38-126); Anion Gap 12 mmol/L; Blood Urea Nitrogen 19 mg/dL (9-20); Calcium 9.2 mg/dL (8.4-10.2); Carbon Dioxide 24 mmol/L (22-30); Chloride 106 mmol/L (98-107); Glucose 246 mg/dL (74-99); Lipase 117 U/L (23-300); Non-African American GFR(CKD) >90 (>60 ml/min/1.73 sqM); Potassium 4.2 mmol/L (3.5-5.1); Sodium 142 mmol/L (137-145); Total Bilirubin 0.7 mg/dL (0.2-1.3); Total Protein 7.8 g/dL (6.3-8.2)
--- NOTE | 2025-01-21 09:47 | CT ---
EXAMINATION TYPE: CT abdomen pelvis wo con DATE OF EXAM: 01/21/2025 COMPARISON: CT abdomen pelvis February 24, 2024 CLINICAL INDICATION: Male, 64 years old with history of left flank pain, LT flank pain. Hx renal ston es, TECHNIQUE: CT scan of the abdomen and pelvis is performed , patient injected with mL of ., (none if empty) Oral contrast used: without Oral Contrast (none if empty) CT DLP: 1669 mGycm, Automated exposure control for dose reduction was used. FINDINGS: Within the limitations of noncontrast study, the following observations are made. LUNG BASES: Cardiomegaly is redemonstrated. LIVER/GB: Hepatomegaly is present. Liver remains heterogeneously hypodense consistent with marked dif fuse fatty infiltrative hepatocellular disease. PANCREAS: No significant abnormality is seen. SPLEEN: No significant abnormality is seen. ADRENALS: No significant abnormality is seen. KIDNEYS: No right-sided renal calculi or hydronephrosis. There is 7 mm calculus in left kidney axial image 59. There is 4 mm calculus at left UVJ axial image 152 causing mild left-sided hydronephrosis. BOWEL: Scattered colonic diverticula are redemonstrated. No CT evidence for acute diverticulitis.. PROSTATE/SEMINAL VESICLES: No gross abnormality seen. LYMPH NODES: No greater than 1cm abdominal or pelvic lymph nodes are appreciated. OSSEOUS STRUCTURES: Multilevel spurring in the spine. OTHER: No significant additional abnormality is seen. IMPRESSION: There is a 4 mm calculus at left UVJ causing mild left-sided hydronephrosis. [facility], , 01/21/2025 9:44 AM
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
[2025-01-21 12:24] LABS: Appearance,Urine Turbid (Clear); Bilirubin,Urine Negative (Negative); Blood,Urine Large (Negative); Color,Urine Light Red; Glucose,Urine (UA) 3+ (Negative); Ketones,Urine Trace (Negative); Leukocyte Esterase,Urine Negative (Negative); Mucus,Urine Many /hpf; Nitrite,Urine Negative (Negative); Protein,Urine 1+ (Negative); RBC,Urine >182 /hpf (0-5); Specific Gravity,Urine 1.028 (1.001-1.035); Uric Acid Crystals,Urine Occasional /hpf; Urobilinogen,Urine <2.0 mg/dL (<2.0); WBC,Urine 4 /hpf (0-5)
[2025-01-21] MEDS: ACET/COD 300 MG/30 MG STARTER PACK 6 TAB BTL PO STA (12:42)
[2025-01-25 13:11] VITALS: BP 161/92; PULSE 88
== END 2025-01-21 12:50 | disposition home or self-care (01) ==
LOC: EC 08:21
DX: N13.2 Hydronephrosis with renal and ureteral calculous obstruction (principal)
CPT/HCPCS: 36415; 80053; 83690; 85025; 81001; 74176; 99284; 96374; 96375; 96376; 96361; J2405; J1885; J1171